=== PATIENT | female | born 2000 | race Caucasian/White ===

== ENCOUNTER 2021-05-27 14:12 | Emergency (ER) | payer OTHER ==
[~2021-05-27] VITALS: Ht 177.8 cm; Wt 81.7 kg
[2021-05-27 14:15] VITALS: BP 125/75
[2021-05-27] MEDS ORDERED: IBU600 MG PO (15:39)
== END 2021-05-27 15:40 | disposition home or self-care (01) ==
LOC: ER 14:12
DX: S83.92XA Sprain of unspecified site of left knee, initial encounter (principal); S83.005A Unspecified dislocation of left patella, initial encounter; W19.XXXA Unspecified fall, initial encounter; Y93.67 Activity, basketball; Y92.89 Other specified places as the place of occurrence of the external cause; Y99.8 Other external cause status